=== PATIENT | male | born 1985 ===

== ENCOUNTER → 2020-03-14 | Outpatient (CLI) | payer BC, OTHER | LOC: LAB EV 12:32 → LAB SHORT 12:32 | DX: B34.9 Viral infection, unspecified (principal); Z20.828 Contact with and (suspected) exposure to other viral communicable diseases | CPT/HCPCS: U0003 ==

== ENCOUNTER → 2020-04-27 | Outpatient (CLI) | payer BC, OTHER | END | disposition home or self-care (01) | LOC: LAB EV 12:51 → LAB SHORT 12:51 | DX: R05 Cough (principal); Z20.828 Contact with and (suspected) exposure to other viral communicable diseases | CPT/HCPCS: U0003 ==